=== PATIENT | male | born 1985 | race Caucasian/White ===

== ENCOUNTER 2016-11-27 10:41 | Inpatient (IN) | payer BC ==
[~2016-11-27] VITALS: Ht 162.6 cm; Wt 99.0 kg
--- NOTE | ~2016-11-27 | HP ---
ADMIT: 11/27/2016 RM/LOC: 309 [facility] MR#: [id number] [id number] [place], [place] [address] JONNY OLSON [address] [place] [address] History and Physical SEX: M AGE: 31 : 1985 DATE OF SERVICE: CHIEF COMPLAINT: Apparent drug overdose. HISTORY OF PRESENT ILLNESS: Jonny is a 31-year-old, male who presented to the Emergency Department after being found down by his spouse. I am unable to obtain history from the patient at this time as he is extubated, however, did review history as obtained from the ER physician who did his initial evaluation. Apparently, the patient took several medications at home. There are numerous pill bottles in the home secondary to his and his 's psychiatric and medical illnesses. It is not clearly known which pills he took today. He posted on social media what appeared to be a suicide note but I have not been able to review this at this time. He does have some psychiatric history and is on sertraline and Klonopin. There is no known history of suicide attempts in the past, however. Upon evaluation in the Emergency Department, he was somnolent and mental status continued to deteriorate and ABG was obtained at that time, it was recommended that he be intubated. At this time, he remains intubated but is stable. Critical Care has been consulted and is following the patient as well. PAST MEDICAL HISTORY: 1. Some unknown psychiatric disorder, suspect generalized anxiety and possible major depressive disorder. 2. Gastroesophageal reflux disease. MEDICATIONS: 1. Sertraline 50 mg one tablet daily. 2. Pantoprazole 40 mg daily. 3. Librax one capsule twice daily as needed for abdominal pain. 4. Nicotine patch as needed. 5. Hydroxyzine 25 mg t.i.d. as needed. ALLERGIES: NO KNOWN MEDICAL ALLERGIES. SOCIAL AND FAMILY HISTORY: This was unobtainable secondary to the patient's intubation. However, of note, the patient's has been at bedside and has been very agitated with nursing staff. REVIEW OF SYSTEMS: As per HPI. Otherwise, unable to be reviewed due to intubation. PHYSICAL EXAMINATION: VITAL SIGNS: Temperature 96.7, pulse 68, respiratory rate 12, blood pressure 130/85, oxygen saturation 99% on ventilator. GENERAL: The patient is sedated and comfortable. No agitation or distress. HEART: Regular rate and rhythm. No murmurs. LUNGS: Clear. No crackles or wheezes. ABDOMEN: Soft, nontender, and nondistended. Normal bowel sounds. No ADMIT: 11/27/2016 RM/LOC: 309 [facility] MR#: [id number] [id number] [place] [address] History and Physical SEX: M AGE: 31 : 1985 abdominal masses or organomegaly. NEUROLOGIC: Unobtainable secondary to sedation. SKIN: No obvious rash or lesions. LABORATORY DATA: These were reviewed. IMAGING: Chest x-ray was reviewed. ASSESSMENT AND PLAN: 1. Drug overdose with unknown agents. Urine drug screen was positive for cannabinoids as well but was negative for narcotics, benzodiazepines, and salicylates. There was trace amount of alcohol. We will continue to support. 2. Acute respiratory failure, likely secondary to drug overdose. We will continue with intubation overnight and appreciate Critical care's recommendations. If does well, we will plan to wean sedation and attempt extubation tomorrow. 3. Probable suicide attempt. Given the note on social media. We will consult Psychiatry once the patient is extubated and able to communicate. 4. Chronic major depressive disorder versus generalized anxiety disorder. Brynn Rodriguez MD/ jodee JOB #: [id number] CC: Brynn Rodriguez, Attending Physician Brynn Rodriguez, Family Physician
--- NOTE | 2016-12-01 08:37 | DS ---
ADMIT: 11/27/2016 RM/LOC: [address] [facility] MR#: [id number] [address] [facility] [address] [place], [place] [address] DIONI OLSON [address] [place] [address] Discharge Summary SEX: M AGE: 31 : 1985 ADMISSION DATE: 11/27/2016 DISCHARGE DATE: 11/29/2016 DISCHARGE DIAGNOSES: 1. Drug overdose with unknown drugs. 2. Acute respiratory failure, requiring intubation, hypoxic. 3. Suicide attempt. 4. Major depressive disorder. 5. Generalized anxiety disorder. CONSULT: Critical Care. REASON FOR ADMISSION: The patient was admitted as a city call patient after presenting with presumed drug overdose and suicide attempt. In the Emergency Department, his respiratory status declined and required intubation. He was, therefore, admitted to ICU for further management. Please see history and physical for full details. HOSPITAL COURSE: The patient was admitted to the ICU with routine ICU orders. On the afternoon of November 27, 2016, Critical Care was consulted to assist in managing his ventilator. Stewart catheter was placed. Drug screen was positive only for trace amounts of alcohol and cannabinoids. He was sedated with propofol. Remaining lab and x-ray findings were unremarkable. He has a known history of major depressive disorder and generalized anxiety, and his records from his mental health provider were obtained and reviewed. He was able to be extubated on the morning of November 28, 2012. He did well following extubation and was eating on his own. Stewart catheter was removed and he was voiding on his own. He was ambulating on his own. Psychiatry was then consulted and a request placed to [facility]. He will be transferred per protective custody to inpatient psychiatry. DISCHARGE MEDICATIONS: None. DISCHARGE INSTRUCTIONS: The patient was discharged to inpatient psych treatment for further evaluation. We will follow up with his routine primary care provider two weeks following psychiatric discharge. He may otherwise resume general diet and activity. Brynn Rodriguez MD/ brijesh JOB #: [id number] CC: Brynn Rodriguez MD, Attending Physician Brynn Rodriguez MD, Family Physician
--- NOTE | 2016-12-02 07:48 | ER ---
ADMIT: 11/27/2016 RM/LOC: [address] [facility] MR#: [id number] [address] [facility] [address] [place], [place] [address] DIONI OLSON [address] [place] [address] Emergency Room Report SEX: M AGE: 31 : 1985 DATE: 11/27/2016 CHIEF COMPLAINT: Possible intentional drug overdose. HISTORY OF PRESENT ILLNESS: The patient is a 31-year-old male, who has no significant underlying medical conditions, who comes in by EMS with [facility] for concerns of a possible suicide attempt with intentional drug overdose. The patient is not able to provide me a good history at the time of presentation as he is quite somnolent. I did get some limited history from the , who was not sure of the exact timing but she believes that he took some medications, some of those could have been his and some of those could have been hers, as they have numerous pill bottles around the house. He was unable to tell me exactly what he took, when he took, and how much he took. She talked to him a few hours ago and was alert, able to answer questions, and did not seem somnolent or obtunded, was agitated and frustrated. She denies that he said anything about wanting to hurt himself prior to that. I do get history from some friends who her present that they noted that there was a posting that he put on Facebook that it is essentially a suicide note. From my understanding, the patient has not had a previous suicide attempt in the past. I am unsure the exact medications that he took but there is a possibility he took clonazepam, Librax, sertraline, bupropion and possibly others. REVIEW OF SYSTEMS: Unable to obtain. PAST MEDICAL HISTORY: GERD. Otherwise, unable to obtain other past medical history. MEDICATIONS: See nurse's note. ALLERGIES: UNKNOWN. SOCIAL HISTORY: Lives with . I am not sure if he smokes, drinks, or use drugs. PHYSICAL EXAMINATION: VITAL SIGNS: Blood pressure is 109/71, pulse 83, respirations 17, temp 95.4, sats 93% on room air. HEENT: Head is atraumatic. Pupils are 2 to 3 mm and reactive bilaterally. Extraocular muscles are intact. Trachea is midline. HEART: Regular rate and rhythm. LUNGS: Clear to auscultation. ABDOMEN: Soft and nontender. The patient can move all extremities with purposeful movements. Sensation and motor are grossly intact. SKIN: Warm and dry. There are no skin lesions or rashes. He has good pulses in all 4 extremities. There are no signs of trauma to his torso or extremities. MENTAL STATUS: He is able to answer some questions that is extremely somnolent. He will not give me a history of what he took but does admit to taking pills. When asked directly, he says yes he took pills. ADMIT: 11/27/2016 RM/LOC: [address] [facility] MR#: [id number] [address] [address] [place] [address] Emergency Room Report SEX: M AGE: 31 : 1985 EMERGENCY DEPARTMENT COURSE: When the patient presented, he was extremely somnolent but was still protecting his airway. We went ahead and did the EPC routine and he was given charcoal which he was able to drink. Shortly after he got his charcoal and the patient became more somnolent. I got an ABG, which shows that his pH was 7.27, pCO2 of 49, and PO2 of 56. At this point, I believe he was not protecting his airway and had some issues of significant respiratory depression and believed he needed to be intubated. I then used 20 of etomidate, 100 of succinylcholine, and intubated the patient with an 8-0 ET tube. It was visualized passing his cords. He had good breath sounds and good color change on his CO2 monitor. His ET tube was confirmed with chest x- ray. His CBC was unremarkable. His chemistries were unremarkable other than potassium of 3.6. Acetaminophen and salicylate were normal and ethanol was 5. The patient, from my understanding, is a nurse practitioner at [employer]. I did get the patient admitted to Dr. Rodriguez and he will be going to the ICU in critical condition. One and half hours of critical care time was spent on this patient. He was admitted. DIAGNOSES: 1. Suicide attempt. 2. Intentional drug overdose. 3. Respiratory failure. Robert Randhawa MD/ jodee JOB #: [id number] CC: Brynn Rodriguez MD, Attending Physician Brynn Rodriguez MD, Family Physician
--- NOTE | 2017-01-05 16:45 | CO ---
ADMIT: 11/27/2016 RM/LOC: [address] [facility] MR#: [id number] [address] [address] DIONI OLSON [address] [place] [id number] Consultation SEX: M AGE: 31 : 1985 DATE OF CONSULTATION: 11/27/2016 ATTENDING PHYSICIAN: Brynn Rodriguez CONSULTING PHYSICIAN: Moraima Schwab MD REASON FOR CONSULTATION: Respiratory failure, management of ventilator. HISTORY OF PRESENT ILLNESS: The patient is a 31-year-old gentleman, who was admitted after an overdose, developed respiratory distress, requiring intubation and mechanical ventilation. He was found down by his spouse at home. Apparently, he took multiple medications with numerous pill bottles in the home. His also has some psychiatric illness. We are unsure of what medications he took. He currently takes sertraline and Klonopin. No prior history of suicide attempts. He is currently sedated and intubated. PAST MEDICAL HISTORY: Psychiatric disorder, possible generalized anxiety with possible major depression, reflux. MEDICATIONS: At home: 1. Pantoprazole. 2. Librax. 3. Nicotine. 4. Hydroxyzine. 5. Sertraline. ALLERGIES: NONE. FAMILY HISTORY: Not obtainable. SOCIAL HISTORY: Not obtainable. REVIEW OF SYSTEMS: From [facility] only. PHYSICAL EXAMINATION: GENERAL: He is intubated and sedated. VITAL SIGNS: Temp 97, pulse 68, respirations 12, blood pressure 130/70, sats 99%. HEENT: Intubated. Pupils equal, round, reactive to light and accommodation. NECK: No JVD or bruits. ABDOMEN: Soft. HEART: Regular rate. No murmur or gallop. LUNGS: Clear. EXTREMITIES: Shows no cyanosis, clubbing, edema. He spontaneously moves all extremities. NEUROLOGICAL: Unobtainable otherwise. ADMIT: 11/27/2016 RM/LOC: [address] [facility] MR#: [id number] [id number] [place], [place] [address] DIONI OLSON [address] [place] [address] Consultation SEX: M AGE: 31 : 1985 LABORATORY DATA: Reviewed. His acetaminophen and salicylate levels were normal. His drug screen urine was negative except for cannabinoids. Arterial blood gases; pH 7.37, pCO2 45, PO2 of 79 on 40%. Chest x-ray shows no atelectasis or pneumonia. IMPRESSION: Overdose. Specific drugs are not known. His toxicology screens are negative except for marijuana. We will monitor him closely overnight. Activated charcoal has been given in the emergency room. IV saline, propofol, ventilatory support. As he improves, we will attempt a spontaneous breathing trial to extubate hopefully in the morning, and then will get a Psychiatry evaluation and help. Continue to monitor from a medical standpoint. Moraima Schwab MD/ jodee JOB #: [id number] CC: Brynn Rodriguez, Attending Physician Brynn Rodriguez, Family Physician
== END 2016-11-29 12:37 | DRG 917 ==
LOC: ER 10:41 → 3ICU 12:40
PROVIDERS: ADMIT Family Medicine
PROC: 0BH17EZ Insertion of Endotracheal Airway into Trachea, Via Natural or Artificial Opening (ICD-10-PCS; principal; 2016-11-27)
PROC: 5A1935Z Respiratory Ventilation, Less than 24 Consecutive Hours (ICD-10-PCS; principal; 2016-11-27)
DX: T65.92XA Toxic effect of unspecified substance, intentional self-harm, initial encounter (principal); J96.01 Acute respiratory failure with hypoxia; K21.9 Gastro-esophageal reflux disease without esophagitis; F32.9 Major depressive disorder, single episode, unspecified; F41.1 Generalized anxiety disorder